=== PATIENT | female | born 1955 | race Caucasian/White ===

== ENCOUNTER → 2017-04-07 | Outpatient (CLI) | payer BC | END | disposition home or self-care (01) | LOC: KCIC 13:29 | DX: M81.0 Age-related osteoporosis without current pathological fracture (principal); M25.531 Pain in right wrist; M25.532 Pain in left wrist | CPT/HCPCS: 73110 ==

== ENCOUNTER → 2017-06-24 | Day surgery (SDC) | payer BC ==
[~2017-06-24] MED LIST: LIDOCAINE 2% 100 MG/5 ML SYRINGE.; PHENYLEPHRINE in 0.9% NACL PF 1 MG/10 ML SYRINGE. IV; PROPOFOL 20 ML IV
[2017-06-24] MEDS: IV RINGERS,LACTATED 1000ML 1,000 ML IV (07:25)
== END | disposition home or self-care (01) ==
LOC: ENDOS 06:28
DX: K64.0 First degree hemorrhoids (principal); K62.1 Rectal polyp; K63.5 Polyp of colon; K29.50 Unspecified chronic gastritis without bleeding; D50.0 Iron deficiency anemia secondary to blood loss (chronic); E78.00 Pure hypercholesterolemia, unspecified; E11.9 Type 2 diabetes mellitus without complications; Z85.3 Personal history of malignant neoplasm of breast; Z83.3 Family history of diabetes mellitus; Z79.84 Long term (current) use of oral hypoglycemic drugs; Z79.899 Other long term (current) drug therapy; Z98.890 Other specified postprocedural states
CPT/HCPCS: 43235; 88305; J2370; J2704

== ENCOUNTER → 2018-08-10 | Outpatient (CLI) | payer BC ==
[2017-06-24 08:27] VITALS: BP 123/72
[~2018-08-10] MED LIST changes: +ANAS1TAB47 PO; +ATOR40TA59 PO; +CANA300T PO; +FENO160T PO; +HYDR-2761 PO; +Hydrocodone/Acetaminophen PO; -LIDOCAINE 2% 100 MG/5 ML SYRINGE.; +LINA5TAB PO; +LISI-334 PO; +METF10007 PO; -PHENYLEPHRINE in 0.9% NACL PF 1 MG/10 ML SYRINGE. IV; -PROPOFOL 20 ML IV; +SAXA5TAB PO
--- NOTE | 2018-08-10 17:23 | KCIC ---
Examination: 3 views of the right knee HISTORY: History of posterolateral right knee pain COMPARISON: None available. Findings Moderate joint space loss identified in the medial compartment of the right knee. There is mild joint space loss identified in the lateral compartment femoral compartments of the right knee. There is no obvious acute fracture identified. There is a bony density projecting posterior to the knee joint which appears in medial on the sunrise view could be a loose body or soft tissue calcification. CT may be useful for further evaluation. IMPRESSION: Tricompartmental degenerative changes most in the medial compartment of the right knee. There is a bony density projecting posterior to the knee joint which appears in medial on the sunrise view could be a loose body or soft tissue calcification. CT may be useful for further evaluation. Electronically signed by: Rolf Finney MD (08/10/2018 5:20 PM) [facility]
== END | disposition home or self-care (01) ==
LOC: KCIC 08:53
PROVIDERS: ATTEND Nurse Practitioner Gerontology
DX: M17.11 Unilateral primary osteoarthritis, right knee (principal)
CPT/HCPCS: 73562

== ENCOUNTER → 2018-08-25 | Outpatient (CLI) | payer BC ==
[2017-06-24 08:27] VITALS: BP 123/72
--- NOTE | 2018-08-25 14:38 | KCIC ---
MR of the right knee HISTORY: Right knee pain, anterior and posterior. TECHNIQUE: Routine multiplanar sequences are obtained. FINDINGS: Degenerative tear of the medial meniscus. No evidence of lateral meniscal tear. Anterior and posterior cruciate ligaments are intact. Medial collateral ligament is intact. Iliotibial band unremarkable. Fibular collateral ligament, biceps femoris tendon and popliteus tendon are intact. Extensor mechanism is intact. Small joint effusion. 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 Severe cartilage loss at the medial joint compartment with subchondral cysts. Mild degenerative change at the lateral compartment. No aggressive bone destruction or acute fracture. Small Rondon's cyst. Small osteochondral loose body within the superior aspect of the cyst. IMPRESSION: 1. Medial meniscal tear. 2. Primary osteoarthritis. 3. Small osteochondral loose body within the superior aspect of Rondon's cyst. Electronically signed by: Nikhil Parikh MD (08/25/2018 2:35 PM) [facility]
== END | disposition home or self-care (01) ==
LOC: KCIC MRI 07:36
PROVIDERS: ATTEND Family Medicine
DX: S83.241A Other tear of medial meniscus, current injury, right knee, initial encounter (principal); M22.41 Chondromalacia patellae, right knee; M25.461 Effusion, right knee; M25.561 Pain in right knee; M71.21 Synovial cyst of popliteal space [Baker], right knee; M17.11 Unilateral primary osteoarthritis, right knee; X58.XXXA Exposure to other specified factors, initial encounter; Y93.89 Activity, other specified; Y92.89 Other specified places as the place of occurrence of the external cause; Y99.8 Other external cause status
CPT/HCPCS: 73721

== ENCOUNTER 2019-03-28 12:21 | Emergency (ER) | payer BC ==
[~2019-03-28] VITALS: Ht 139.7 cm; Wt 77.1 kg
[2019-03-28 13:21] VITALS: BP 187/80
--- NOTE | 2019-03-28 13:33 | PHYS DOC ---
Adult General Chief Complaint Chief Complaint: FOOT INJURY PAIN [facility] HPI Patient is a 63 year old female who presents with right foot pain started this morning. The patient was walking outside and stepped on a gumball from a tree and tripped over this and her ankle twisted. The patient has had lateral pain to her right foot since that time. The patient rates her pain a 7 out of 10 in severity and sharp. She took an Aleve around 11:30 and states the pain has not improved. Denies any other symptoms. Complete ROS were reviewed and found to be within normal limits, except as documented in the HPI Current Medications Current Medications Current Medications Medications (Trade) Dose Ordered Sig/Williams Start Time Stop Time Status Last Admin Dose Admin Acetaminophen/ Hydrocodone Bitart (Lortab 5/325) 1 tab 1X ONCE 03/28/19 14:00 03/28/19 14:01 DC 03/28/19 13:54 1 TAB Allergies Allergies Allergies Coded Allergies Type Severity Reaction Last Updated Verified No Known Drug Allergies 06/24/17 No Physical Exam Physical Exam Constitutional: Well developed, well nourished, no acute distress, non-toxic appearance. [] HENT: Normocephalic, atraumatic, bilateral external ears normal, oropharynx moist, no oral exudates, nose normal. [] Eyes: conjunctiva normal, no discharge. [] Skin: Warm, dry, no erythema, no rash. [] Extremities: Tenderness to lateral R foot, no edema. [] Neurologic: Alert and oriented X 3, normal motor function, normal sensory function, no focal deficits noted. [] Psychologic: Affect normal, judgement normal, mood normal. [] Current Patient Data Vital Signs Vital Signs Date Time Temp Pulse Resp B/P (MAP) Pulse Ox O2 Delivery O2 Flow Rate FiO2 03/28/19 13:54 18 Room Air 03/28/19 13:21 98.1 83 187/80 (115) 100 98.1 EKG EKG [] Radiology/Procedures Radiology/Procedures [][facility] [address] [place], [place] [id number] IMAGING REPORT Signed PATIENT: STEF NORWOOD ACCOUNT: [id number] : 1955 LOCATION: ER AGE: 63 SEX: F EXAM STATUS: REG ER ORD. PHYSICIAN: GRETA COPPOLA APRN REASON: fall,foot pain, PT STATES LATERAL AND SUPERIOR PAIN OF RIGHT FOOT PROCEDURE: FOOT RIGHT 3V EXAM: Right foot, 3 views HISTORY: Pain. COMPARISON: None. FINDINGS: 3 views of the right foot are obtained. There is a nondisplaced fracture involving the base of the fifth metatarsal. No additional fracture is seen. There is a small plantar spur. There is mild ankle osteoarthritis. IMPRESSION: Nondisplaced fracture of the base of the fifth metatarsal. Electronically signed by: Liliam Mancia MD (03/28/2019 2:22 PM) [facility] DICTATED and SIGNED BY: LILIAM MANCIA MD DATE: 03/28/191421 Course & Med Decision Making Course & Med Decision Making Pertinent Labs and Imaging studies reviewed. (See chart for details) Will get x-ray and give [place]. Has a Patel Fracture. Will place in boot and have follow up with Ortho. Discussed with Dr. Morrow. Will give norco for pain. Dragon Disclaimer Dragon Disclaimer This electronic medical record was generated, in whole or in part, using a voice recognition dictation system. Departure Departure Impression: Primary Impression: Patel fracture Disposition: HOME, SELF-CARE Condition: STABLE Referrals: KELLY GIRON MD (PCP) Additional Instructions: Thank you for visiting [facility]. We appreciate you trusting us with your care. If any additional problems come up don't hesitate to return to visit us. Please follow up with your primary care provider so they can plan additional care if needed and know about the problem that you had. If symptoms worsen come back to the Emergency Department. Any concerning symptoms that start such as chest pain, shortness of air, weakness or numbness on one side of the body, running high fevers or any other concerning symptoms return to the ER. Please follow up with Orthopedics. Scripts Hydrocodone/Apap 5-325 (NORCO 5-325 TABLET) 1 Each Tablet 1 TAB PO PRN Q6HRS PRN for PAIN for 3 Days, #10 TAB 0 Refills Prov: GRETA COPPOLA APRN 03/28/19 Problem Qualifiers Primary Impression: Patel fracture Encounter type: initial encounter Fracture type: closed Laterality: right Qualified Codes: S99.191A - Other physeal fracture of right metatarsal, initial encounter for closed fracture GRETA COPPOLA APRN Mar 28, 2019 13:33
[2019-03-28] MEDS ORDERED: HYDROcodone/APAP 5/325MG 1 TAB TABLET PO ONE (14:00)
--- NOTE | 2019-03-28 14:25 | RAD ---
EXAM: Right foot, 3 views HISTORY: Pain. COMPARISON: None. FINDINGS: 3 views of the right foot are obtained. There is a nondisplaced fracture involving the base of the fifth metatarsal. No additional fracture is seen. There is a small plantar spur. There is mild ankle osteoarthritis. IMPRESSION: Nondisplaced fracture of the base of the fifth metatarsal. Electronically signed by: Liliam Carvalho MD (03/28/2019 2:22 PM) [place] [id number]
[2019-03-28] MEDS ORDERED: HYDR-3164 PO (14:54)
== END 2019-03-28 15:37 | disposition home or self-care (01) ==
LOC: ER 12:21
DX: S92.354A Nondisplaced fracture of fifth metatarsal bone, right foot, initial encounter for closed fracture (principal); W18.40XA Slipping, tripping and stumbling without falling, unspecified, initial encounter; Y93.01 Activity, walking, marching and hiking; Y92.89 Other specified places as the place of occurrence of the external cause; Y99.8 Other external cause status
CPT/HCPCS: 73630; 99284

== ENCOUNTER → 2021-06-15 | Outpatient (CLI) | payer OTHER ==
[~2021-06-15] MED LIST changes: +HYDR-3164 PO; -LISI-334 PO; +LISI20TA18 PO
--- NOTE | 2021-06-15 16:02 | KCIC ---
EXAMINATION: XR CHEST 2V CLINICAL HISTORY: BRONCHITIS, COUGH, SOA X'S 10 DAYS, -COVID, NON SMOKER. EXAM DATE/TIME: 06/15/2021 2:40 PM COMPARISON: None FINDINGS: Lines, Tubes, and Devices: None. Cardiomediastinal Silhouette: Heart size at upper limits of normal. Lungs and Pleura: Mild patchy opacities in the right lower lung zone. No pleural effusion. Pulmonary vasculature unremarkable. Bones and Soft Tissues: Degenerative changes in the thoracic spine. IMPRESSION: Mild patchy airspace disease in right lower lung zone, suspicious for pneumonia in the appropriate cl inical setting. Electronically signed by: Rhett Perry DO (06/15/2021 4:00 PM) [id number]
== END ==
LOC: KCIC 14:14
PROVIDERS: ATTEND Family Medicine
DX: R91.8 Other nonspecific abnormal finding of lung field (principal); J40 Bronchitis, not specified as acute or chronic; M47.814 Spondylosis without myelopathy or radiculopathy, thoracic region
CPT/HCPCS: 71046